=== PATIENT | female | born 1985 | race Caucasian/White ===

== ENCOUNTER → 2020-05-24 | Outpatient (CLI) | payer BC ==
[~2020-05-24] MED LIST: MOTRIN800 MG PO; PERCOCET 325 MG1 TA6 PO; PRENATAL1 TA2 PO; ZOFRAN4 MG PO
== END | disposition home or self-care (01) ==
LOC: RAD 12:11
PROVIDERS: ATTEND Nurse Practitioner Family
DX: M25.512 Pain in left shoulder (principal)

== ENCOUNTER → 2021-02-13 | Outpatient (CLI) | payer BC ==
[2021-02-13 08:24] LABS: BASO % 0.4 % (0.0-1.0); EOS # 0.1 10*3/uL (0.0-0.4); EOS % 1.9 % (1.0-4.0); HEMATOCRIT 41.3 % (37.0-47.0); LYMPH # 1.7 10*3/uL (1.3-4.4); LYMPH % 30.4 % (27.0-41.0); MEAN CELL VOLUME 81.8 fl (81.0-99.0); MEAN CORPUSCULAR HGB 26.1 pg (27.0-31.0); MEAN PLATELET VOLUME 10.4 fl (9.6-12.3); MONO # 0.4 10*3/uL (0.1-1.0); MONO % 6.7 % (3.0-9.0); NEUT # 3.4 10*3/uL (2.3-7.9); NEUT % 60.4 % (47.0-73.0); PLATELET COUNT AUTOMATED 282 10*3/uL (130-400); RED BLOOD COUNT 5.05 10*6/uL (4.10-5.10); RED CELL DISTRI WIDTH 13.2 % (0-14.5); WHITE BLOOD COUNT 5.7 10*3/uL (4.8-10.8)
[2021-02-13 08:44] LABS: ALBUMIN 3.9 gm/dl (3.1-4.5); ALKALINE PHOSPHATASE 73 U/L (45-117); BUN 7 mg/dl (7-24); CHLORIDE 111 mmol/L (98-107); CHOLESTEROL 136 mg/dL (<200); CREATININE 0.73 mg/dL (0.55-1.02); LDL CHOLESTEROL 46 mg/dL (9-159); POTASSIUM 4.3 mmol/L (3.5-5.1); SGOT/AST 14 IU/L (3-35); SGPT/ALT 27 U/L (12-78); SODIUM 142 mmol/L (136-145); TOTAL PROTEIN 7.3 gm/dL (6.4-8.2); TRIGLYCERIDES 173 mg/dl (<150)
[2021-02-14 08:08] LABS: FOLLICLE STIMULATING HORMONE 7.7 mIU/mL (.); PROLACTIN 9.8 ng/mL (4.8-23.3)
[2021-02-19 11:07] LABS: TESTOSTERONE FREE, (DIRECT) 2.7 pg/mL (0.0-4.2)
== END | disposition home or self-care (01) ==
LOC: LAB 07:43
PROVIDERS: ATTEND Nurse Practitioner Family
DX: E55.9 Vitamin D deficiency, unspecified (principal); E66.01 Morbid (severe) obesity due to excess calories; N92.6 Irregular menstruation, unspecified; E78.2 Mixed hyperlipidemia

== ENCOUNTER → 2022-05-04 | Outpatient (CLI) | payer BC | END | disposition home or self-care (01) | LOC: RAD 15:13 | PROVIDERS: ATTEND Nurse Practitioner Family | DX: R05.1 Acute cough (principal) ==

== ENCOUNTER → 2022-09-21 | Outpatient (CLI) | payer BC ==
[2022-09-21 17:04] LABS: BASO % 0.4 % (0.0-1.0); EOS # 0.1 10*3/uL (0.0-0.4); EOS % 1.7 % (1.0-4.0); HEMATOCRIT 40.6 % (37.0-47.0); LYMPH # 1.8 10*3/uL (1.3-4.4); LYMPH % 25.9 % (27.0-41.0); MEAN CELL VOLUME 79.8 fl (81.0-99.0); MEAN CORPUSCULAR HGB CONC 31.3 g/dl (33.0-37.0); MEAN PLATELET VOLUME 10.2 fl (9.6-12.3); MONO # 0.4 10*3/uL (0.1-1.0); MONO % 6.1 % (3.0-9.0); NEUT # 4.6 10*3/uL (2.3-7.9); NEUT % 65.8 % (47.0-73.0); PLATELET COUNT AUTOMATED 315 10*3/uL (130-400); RED BLOOD COUNT 5.09 10*6/uL (4.10-5.10); RED CELL DISTRI WIDTH 13.3 % (0-14.5)
[2022-09-21 17:39] LABS: ALKALINE PHOSPHATASE 76 U/L (46-116); BUN 5 mg/dl (9-23); CHLORIDE 106 mmol/L (98-107); POTASSIUM 3.9 mmol/L (3.4-5.1); SGPT/ALT 16 U/L (10-49); TOTAL PROTEIN 7.1 gm/dL (6.0-8.0)
[2022-09-24 11:08] LABS: LUPUS DRVVT 45.9 sec (0.0-47.0); PTT-LA 42.9 sec (0.0-43.5)
[2022-09-24 12:07] LABS: LUPUS REFLEX INTERPRETATION Comment: (.)
== END | disposition home or self-care (01) ==
LOC: LAB 16:40
PROVIDERS: ATTEND Nurse Practitioner Family
DX: M25.50 Pain in unspecified joint (principal)

== ENCOUNTER → 2022-11-26 | Outpatient (CLI) | payer BC ==
[2022-11-26 09:29] LABS: BASO % 0.6 % (0.0-1.0); EOS # 0.1 10*3/uL (0.0-0.4); EOS % 1.7 % (1.0-4.0); HEMATOCRIT 41.7 % (37.0-47.0); LYMPH # 1.6 10*3/uL (1.3-4.4); LYMPH % 29.9 % (27.0-41.0); MEAN CELL VOLUME 77.2 fl (81.0-99.0); MEAN CORPUSCULAR HGB 24.4 pg (27.0-31.0); MEAN CORPUSCULAR HGB CONC 31.7 g/dl (33.0-37.0); MEAN PLATELET VOLUME 10.4 fl (9.6-12.3); MONO # 0.5 10*3/uL (0.1-1.0); MONO % 8.3 % (3.0-9.0); NEUT # 3.2 10*3/uL (2.3-7.9); NEUT % 59.3 % (47.0-73.0); PLATELET COUNT AUTOMATED 328 10*3/uL (130-400); RED CELL DISTRI WIDTH 14.1 % (0-14.5); WHITE BLOOD COUNT 5.4 10*3/uL (4.8-10.8)
== END | disposition home or self-care (01) ==
LOC: LAB 08:46
PROVIDERS: ATTEND Nurse Practitioner
DX: J21.9 Acute bronchiolitis, unspecified (principal); R05.9 Cough, unspecified

== ENCOUNTER → 2023-02-11 | Outpatient (CLI) | payer BC | END | disposition home or self-care (01) | LOC: RAD 16:17 | PROVIDERS: ATTEND Nurse Practitioner Family | DX: M77.31 Calcaneal spur, right foot (principal); M79.672 Pain in left foot; M25.541 Pain in joints of right hand; M25.542 Pain in joints of left hand ==

== ENCOUNTER → 2023-04-09 | Outpatient (CLI) | payer BC ==
[2023-04-09 15:00] LABS: BASO % 0.4 % (0.0-1.0); EOS # 0.1 10*3/uL (0.0-0.4); EOS % 1.7 % (1.0-4.0); HEMATOCRIT 39.7 % (37.0-47.0); LYMPH # 1.7 10*3/uL (1.3-4.4); LYMPH % 22.6 % (27.0-41.0); MEAN CELL VOLUME 79.6 fl (81.0-99.0); MEAN CORPUSCULAR HGB 25.7 pg (27.0-31.0); MEAN CORPUSCULAR HGB CONC 32.2 g/dl (33.0-37.0); MEAN PLATELET VOLUME 10.1 fl (9.6-12.3); MONO # 0.5 10*3/uL (0.1-1.0); MONO % 6.5 % (3.0-9.0); NEUT # 5.2 10*3/uL (2.3-7.9); NEUT % 68.5 % (47.0-73.0); PLATELET COUNT AUTOMATED 318 10*3/uL (130-400); RED BLOOD COUNT 4.99 10*6/uL (4.10-5.10); RED CELL DISTRI WIDTH 15.3 % (0-14.5); WHITE BLOOD COUNT 7.6 10*3/uL (4.8-10.8)
[2023-04-09 15:31] LABS: URIC ACID 7.1 mg/dL (3.1-7.8)
[2023-04-09 16:05] LABS: VITAMIN D, 25-HYDROXY 23.9 ng/mL (30-100)
[2023-04-10 08:07] LABS: HEPATITIS B SURFACE AB Non Reactive (.); THYROID PEROXIDASE (TPO) AB 11 IU/mL (0-34)
[2023-04-10 14:05] LABS: CCP ANTIBODIES IGG/IGA 3 units (0-19)
== END | disposition home or self-care (01) ==
LOC: LAB 14:36
PROVIDERS: ATTEND Internal Medicine Rheumatology
DX: M47.817 Spondylosis without myelopathy or radiculopathy, lumbosacral region (principal); E55.9 Vitamin D deficiency, unspecified; M06.9 Rheumatoid arthritis, unspecified; M45.0 Ankylosing spondylitis of multiple sites in spine

== ENCOUNTER → 2023-05-21 | Outpatient (CLI) | payer BC ==
[2023-05-22 15:06] LABS: ANTI-SMOOTH MUSCLE ANTIBODY 5 Units (0-19); ANTICARDIOLIPIN AB, IGG, QN <9 GPL U/mL (0-14); ANTICARDIOLIPIN AB, IGM, QN <9 MPL U/mL (0-12)
[2023-05-25 12:06] LABS: ANTI-DSDNA ANTIBODIES 2 IU/mL (0-9); ANTI-RNP ANTIBODIES 0.2 AI (0.0-0.9); SJOGREN ANTI-SS-A <0.2 AI (0.0-0.9); SJOREN AB, ANTI-SS-B 1.4 AI (0.0-0.9)
== END | disposition home or self-care (01) ==
LOC: LAB 13:14
PROVIDERS: ATTEND Physician Assistant
DX: R76.0 Raised antibody titer (principal)

== ENCOUNTER → 2023-08-05 | Outpatient (CLI) | payer BC ==
[2023-08-05 10:54] LABS: BASO % 0.4 % (0.0-1.0); EOS # 0.1 10*3/uL (0.0-0.4); EOS % 2.8 % (1.0-4.0); HEMATOCRIT 42.2 % (37.0-47.0); LYMPH # 1.9 10*3/uL (1.3-4.4); LYMPH % 40.4 % (27.0-41.0); MEAN CELL VOLUME 80.1 fl (81.0-99.0); MEAN CORPUSCULAR HGB 25.2 pg (27.0-31.0); MEAN CORPUSCULAR HGB CONC 31.5 g/dl (33.0-37.0); MEAN PLATELET VOLUME 9.7 fl (9.6-12.3); MONO # 0.4 10*3/uL (0.1-1.0); MONO % 8.8 % (3.0-9.0); NEUT # 2.2 10*3/uL (2.3-7.9); NEUT % 47.4 % (47.0-73.0); PLATELET COUNT AUTOMATED 296 10*3/uL (130-400); RED BLOOD COUNT 5.27 10*6/uL (4.10-5.10); RED CELL DISTRI WIDTH 13.8 % (0-14.5); WHITE BLOOD COUNT 4.7 10*3/uL (4.8-10.8)
[2023-08-05 11:18] LABS: SGPT/ALT 15 U/L (5-49)
== END | disposition home or self-care (01) ==
LOC: LAB 10:39
PROVIDERS: Internal Medicine Rheumatology; ATTEND Nurse Practitioner Family
DX: M06.4 Inflammatory polyarthropathy (principal)

== ENCOUNTER → 2023-09-28 | Outpatient (CLI) | payer BC ==
[2023-09-28 07:41] LABS: BASO % 0.2 % (0.0-1.0); EOS # 0.1 10*3/uL (0.0-0.4); EOS % 2.6 % (1.0-4.0); HEMATOCRIT 40.7 % (37.0-47.0); LYMPH # 1.5 10*3/uL (1.3-4.4); LYMPH % 29.1 % (27.0-41.0); MEAN CELL VOLUME 80.8 fl (81.0-99.0); MEAN CORPUSCULAR HGB 25.6 pg (27.0-31.0); MEAN CORPUSCULAR HGB CONC 31.7 g/dl (33.0-37.0); MEAN PLATELET VOLUME 10.5 fl (9.6-12.3); MONO # 0.4 10*3/uL (0.1-1.0); MONO % 8.8 % (3.0-9.0); NEUT % 59.1 % (47.0-73.0); PLATELET COUNT AUTOMATED 267 10*3/uL (130-400); RED BLOOD COUNT 5.04 10*6/uL (4.10-5.10)
[2023-09-28 08:23] LABS: SGPT/ALT 18 U/L (5-49)
== END | disposition home or self-care (01) ==
LOC: LAB 07:18
PROVIDERS: ATTEND Internal Medicine Rheumatology
DX: E55.9 Vitamin D deficiency, unspecified (principal); M06.4 Inflammatory polyarthropathy

== ENCOUNTER → 2023-12-20 | Outpatient (CLI) | payer BC ==
[2023-12-20 10:06] LABS: BASO % 0.7 % (0.0-1.0); EOS # 0.2 10*3/uL (0.0-0.4); EOS % 3.5 % (1.0-4.0); HEMATOCRIT 42.6 % (37.0-47.0); LYMPH # 1.4 10*3/uL (1.3-4.4); LYMPH % 31.3 % (27.0-41.0); MEAN CORPUSCULAR HGB CONC 32.2 g/dl (33.0-37.0); MEAN PLATELET VOLUME 10.2 fl (9.6-12.3); MONO # 0.4 10*3/uL (0.1-1.0); MONO % 8.6 % (3.0-9.0); NEUT # 2.5 10*3/uL (2.3-7.9); NEUT % 55.9 % (47.0-73.0); PLATELET COUNT AUTOMATED 282 10*3/uL (130-400); RED BLOOD COUNT 5.26 10*6/uL (4.10-5.10); RED CELL DISTRI WIDTH 13.6 % (0-14.5); WHITE BLOOD COUNT 4.5 10*3/uL (4.8-10.8)
[2023-12-20 10:58] LABS: ALKALINE PHOSPHATASE 59 U/L (46-116); BUN 9 mg/dl (9-23); CHLORIDE 107 mmol/L (98-107); CHOLESTEROL 208 mg/dL (<200); LDL CHOLESTEROL 125 mg/dL (9-159); POTASSIUM 4.3 mmol/L (3.4-5.1); SGPT/ALT 19 U/L (5-49); TOTAL PROTEIN 7.2 gm/dL (6.0-8.0); TRIGLYCERIDES 134 mg/dl (<150)
== END | disposition home or self-care (01) ==
LOC: LAB 09:48
PROVIDERS: ATTEND Nurse Practitioner Family
DX: E78.2 Mixed hyperlipidemia (principal); E66.01 Morbid (severe) obesity due to excess calories; N92.6 Irregular menstruation, unspecified; M25.50 Pain in unspecified joint; E55.9 Vitamin D deficiency, unspecified

== ENCOUNTER → 2024-02-09 | Outpatient (CLI) | payer BC ==
[2024-02-09 16:08] LABS: BASO % 0.2 % (0.0-1.0); EOS # 0.1 10*3/uL (0.0-0.4); EOS % 1.1 % (1.0-4.0); HEMATOCRIT 43.9 % (37.0-47.0); LYMPH # 3.1 10*3/uL (1.3-4.4); LYMPH % 33.1 % (27.0-41.0); MEAN CELL VOLUME 80.1 fl (81.0-99.0); MEAN CORPUSCULAR HGB CONC 33.7 g/dl (33.0-37.0); MONO # 0.7 10*3/uL (0.1-1.0); MONO % 7.5 % (3.0-9.0); NEUT # 5.5 10*3/uL (2.3-7.9); NEUT % 57.9 % (47.0-73.0); PLATELET COUNT AUTOMATED 307 10*3/uL (130-400); RED BLOOD COUNT 5.48 10*6/uL (4.10-5.10); RED CELL DISTRI WIDTH 13.5 % (0-14.5); WHITE BLOOD COUNT 9.4 10*3/uL (4.8-10.8)
[2024-02-09 16:31] LABS: SGPT/ALT 21 U/L (5-49)
[2024-02-10 14:09] LABS: ANTI-DSDNA ANTIBODIES 2 IU/mL (0-9)
== END | disposition home or self-care (01) ==
LOC: LAB 15:49
PROVIDERS: ATTEND Physician Assistant
DX: M06.9 Rheumatoid arthritis, unspecified (principal); M85.89 Other specified disorders of bone density and structure, multiple sites; M35.9 Systemic involvement of connective tissue, unspecified

== ENCOUNTER → 2024-03-17 | Outpatient (CLI) | payer BC ==
[2024-03-17 16:16] LABS: BASO % 0.4 % (0.0-1.0); EOS # 0.1 10*3/uL (0.0-0.4); EOS % 2.1 % (1.0-4.0); HEMATOCRIT 41.8 % (37.0-47.0); LYMPH # 1.9 10*3/uL (1.3-4.4); LYMPH % 39.2 % (27.0-41.0); MEAN CELL VOLUME 82.8 fl (81.0-99.0); MEAN CORPUSCULAR HGB 26.7 pg (27.0-31.0); MEAN CORPUSCULAR HGB CONC 32.3 g/dl (33.0-37.0); MEAN PLATELET VOLUME 10.2 fl (9.6-12.3); MONO # 0.4 10*3/uL (0.1-1.0); MONO % 9.1 % (3.0-9.0); NEUT # 2.3 10*3/uL (2.3-7.9); NEUT % 49.2 % (47.0-73.0); PLATELET COUNT AUTOMATED 293 10*3/uL (130-400); RED BLOOD COUNT 5.05 10*6/uL (4.10-5.10); RED CELL DISTRI WIDTH 13.4 % (0-14.5); WHITE BLOOD COUNT 4.7 10*3/uL (4.8-10.8)
[2024-03-17 16:37] LABS: SGPT/ALT 21 U/L (5-49)
== END | disposition home or self-care (01) ==
LOC: LAB 16:00
PROVIDERS: ATTEND Physician Assistant
DX: M35.9 Systemic involvement of connective tissue, unspecified (principal); M06.4 Inflammatory polyarthropathy

== ENCOUNTER → 2024-05-19 | Outpatient (CLI) | payer BC ==
[2024-05-19 17:04] LABS: BASO % 0.3 % (0.0-1.0); EOS # 0.1 10*3/uL (0.0-0.4); EOS % 1.7 % (1.0-4.0); HEMATOCRIT 42.3 % (37.0-47.0); MEAN CELL VOLUME 84.6 fl (81.0-99.0); MEAN CORPUSCULAR HGB CONC 31.9 g/dl (33.0-37.0); MEAN PLATELET VOLUME 10.1 fl (9.6-12.3); MONO # 0.5 10*3/uL (0.1-1.0); MONO % 7.5 % (3.0-9.0); NEUT # 3.6 10*3/uL (2.3-7.9); NEUT % 59.8 % (47.0-73.0); PLATELET COUNT AUTOMATED 300 10*3/uL (130-400); RED CELL DISTRI WIDTH 13.3 % (0-14.5)
[2024-05-19 17:24] LABS: SGPT/ALT 32 U/L (5-49)
== END | disposition home or self-care (01) ==
LOC: LAB 16:47
PROVIDERS: ATTEND Internal Medicine Rheumatology
DX: M35.9 Systemic involvement of connective tissue, unspecified (principal); M06.4 Inflammatory polyarthropathy

== ENCOUNTER → 2024-08-23 | Outpatient (CLI) | payer OTHER ==
[2024-08-23 16:34] LABS: BASO % 0.4 % (0.0-1.0); EOS # 0.1 10*3/uL (0.0-0.4); HEMATOCRIT 40.2 % (37.0-47.0); MEAN CELL VOLUME 83.9 fl (81.0-99.0); MEAN CORPUSCULAR HGB 26.7 pg (27.0-31.0); MEAN CORPUSCULAR HGB CONC 31.8 g/dl (33.0-37.0); MEAN PLATELET VOLUME 10.1 fl (9.6-12.3); MONO # 0.4 10*3/uL (0.1-1.0); MONO % 8.3 % (3.0-9.0); NEUT # 2.5 10*3/uL (2.3-7.9); NEUT % 53.5 % (47.0-73.0); PLATELET COUNT AUTOMATED 311 10*3/uL (130-400); RED BLOOD COUNT 4.79 10*6/uL (4.10-5.10); RED CELL DISTRI WIDTH 13.3 % (0-14.5); WHITE BLOOD COUNT 4.6 10*3/uL (4.8-10.8)
[2024-08-23 17:06] LABS: SGPT/ALT 24 U/L (5-49)
[2024-08-24 16:07] LABS: ANTI-DSDNA ANTIBODIES 1 IU/mL (0-9)
== END | disposition home or self-care (01) ==
LOC: LAB 16:13
PROVIDERS: Internal Medicine Rheumatology; ATTEND Nurse Practitioner Family
DX: M85.89 Other specified disorders of bone density and structure, multiple sites (principal); E55.9 Vitamin D deficiency, unspecified; M19.90 Unspecified osteoarthritis, unspecified site; M35.9 Systemic involvement of connective tissue, unspecified; M06.4 Inflammatory polyarthropathy

== ENCOUNTER → 2024-08-30 | Outpatient (CLI) | payer OTHER ==
[2024-08-30 17:34] LABS: URIC ACID 6.3 mg/dL (3.1-7.8)
[2024-08-31 13:07] LABS: ANTI-DSDNA ANTIBODIES 1 IU/mL (0-9); ANTI-RNP ANTIBODIES <0.2 AI (0.0-0.9)
[2024-08-31 14:07] LABS: CCP ANTIBODIES IGG/IGA 6 units (0-19)
[2024-08-31 16:08] LABS: A/G RATIO 1.4 (0.7-1.7); ALPHA-1-GLOBULIN 0.3 g/dL (0.0-0.4); ALPHA-2-GLOBULIN 0.7 g/dL (0.4-1.0); BETA GLOBULIN 1.1 g/dL (0.7-1.3); GAMMA GLOBULIN 0.7 g/dL (0.4-1.8); GLOBULIN, TOTAL 2.8 g/dL (2.2-3.9)
[2024-08-31 17:07] LABS: ANTICARDIOLIPIN AB, IGG, QN <9 GPL U/mL (0-14); ANTICARDIOLIPIN AB, IGM, QN <9 MPL U/mL (0-12)
[2024-09-01 07:06] LABS: TB1 Ag VALUE 0.05 IU/mL (.)
== END | disposition home or self-care (01) ==
LOC: LAB 16:32
PROVIDERS: ATTEND Physician Assistant
DX: L40.50 Arthropathic psoriasis, unspecified (principal); M35.9 Systemic involvement of connective tissue, unspecified; M32.9 Systemic lupus erythematosus, unspecified; M45.0 Ankylosing spondylitis of multiple sites in spine; M10.9 Gout, unspecified; Z11.1 Encounter for screening for respiratory tuberculosis

== ENCOUNTER → 2024-12-02 | Outpatient (CLI) | payer OTHER ==
[2024-12-02 10:40] LABS: BASO # 0.0 10*3/uL (0.0-0.1); BASO % 0.5 % (0.0-1.0); EOS # 0.1 10*3/uL (0.0-0.4); EOS % 2.8 % (1.0-4.0); MEAN CELL VOLUME 83.4 fl (81.0-99.0); MEAN CORPUSCULAR HGB 26.9 pg (27.0-31.0); MEAN PLATELET VOLUME 10.2 fl (9.6-12.3); MONO # 0.3 10*3/uL (0.1-1.0); MONO % 7.7 % (3.0-9.0); NEUT # 1.9 10*3/uL (2.3-7.9); NEUT % 47.4 % (47.0-73.0); NUCLEATED RED BLOOD CELL 0.0 % (0.0-0.0); NUCLEATED RED BLOOD CELL 0.0 10*3/uL (0.0-0.0); PLATELET COUNT AUTOMATED 297 10*3/uL (130-400); RED CELL DISTRI WIDTH 13.9 % (0-14.5)
[2024-12-02 11:26] LABS: SGPT/ALT 20 U/L (5-49)
[2024-12-04 14:07] LABS: ANTI-DSDNA ANTIBODIES 2 IU/mL (0-9)
== END | disposition home or self-care (01) ==
LOC: LAB 10:09
PROVIDERS: ATTEND Internal Medicine Rheumatology
DX: E55.9 Vitamin D deficiency, unspecified (principal); M06.4 Inflammatory polyarthropathy; M35.9 Systemic involvement of connective tissue, unspecified; M19.90 Unspecified osteoarthritis, unspecified site; M85.89 Other specified disorders of bone density and structure, multiple sites; R76.0 Raised antibody titer

== ENCOUNTER → 2025-03-01 | Outpatient (CLI) | payer OTHER ==
[2025-03-01 07:46] LABS: BASO # 0.0 10*3/uL (0.0-0.1); BASO % 0.8 % (0.0-1.0); EOS # 0.2 10*3/uL (0.0-0.4); EOS % 4.4 % (1.0-4.0); MEAN CELL VOLUME 84.5 fl (81.0-99.0); MEAN CORPUSCULAR HGB 27.0 pg (27.0-31.0); MEAN PLATELET VOLUME 9.9 fl (9.6-12.3); MONO # 0.4 10*3/uL (0.1-1.0); MONO % 10.2 % (3.0-9.0); NEUT # 1.3 10*3/uL (2.3-7.9); NEUT % 36.5 % (47.0-73.0); NUCLEATED RED BLOOD CELL 0.0 % (0.0-0.0); NUCLEATED RED BLOOD CELL 0.0 10*3/uL (0.0-0.0); PLATELET COUNT AUTOMATED 320 10*3/uL (130-400); RED CELL DISTRI WIDTH 13.4 % (0-14.5)
[2025-03-01 08:36] LABS: BUN 8 mg/dl (9-23); SGPT/ALT 35 U/L (5-49)
[2025-03-02 14:07] LABS: ANTI-DSDNA ANTIBODIES 2 IU/mL (0-9); ANTI-RNP ANTIBODIES <0.2 AI (0.0-0.9)
== END ==
LOC: LAB 07:15
PROVIDERS: ATTEND Physician Assistant Medical
DX: L40.50 Arthropathic psoriasis, unspecified (principal); M35.00 Sjogren syndrome, unspecified; Z79.899 Other long term (current) drug therapy; R53.82 Chronic fatigue, unspecified; E53.8 Deficiency of other specified B group vitamins; Z11.9 Encounter for screening for infectious and parasitic diseases, unspecified; Z11.1 Encounter for screening for respiratory tuberculosis

== ENCOUNTER → 2025-04-07 | Outpatient (CLI) | payer OTHER ==
[2025-04-07 10:11] LABS: BASO # 0.0 10*3/uL (0.0-0.1); BASO % 0.5 % (0.0-1.0); EOS # 0.1 10*3/uL (0.0-0.4); EOS % 3.2 % (1.0-4.0); MEAN CELL VOLUME 82.8 fl (81.0-99.0); MEAN CORPUSCULAR HGB 27.0 pg (27.0-31.0); MEAN PLATELET VOLUME 10.1 fl (9.6-12.3); MONO # 0.3 10*3/uL (0.1-1.0); MONO % 6.8 % (3.0-9.0); NEUT # 2.3 10*3/uL (2.3-7.9); NEUT % 50.7 % (47.0-73.0); NUCLEATED RED BLOOD CELL 0.0 % (0.0-0.0); NUCLEATED RED BLOOD CELL 0.0 10*3/uL (0.0-0.0); PLATELET COUNT AUTOMATED 286 10*3/uL (130-400); RED CELL DISTRI WIDTH 13.3 % (0-14.5)
[2025-04-07 10:36] LABS: BUN 9 mg/dl (9-23); LDL CHOLESTEROL 110 mg/dL (9-159); SGPT/ALT 36 U/L (5-49)
== END | disposition home or self-care (01) ==
LOC: LAB 09:32
PROVIDERS: ATTEND Family Medicine
DX: E66.813 Obesity, class 3 (principal); Z68.41 Body mass index [BMI] 40.0-44.9, adult